=== PATIENT | male | born 1950 | race Caucasian/White ===

== ENCOUNTER 2019-03-21 05:10 | Inpatient (IN) | payer MEDICARE ==
[~2019-03-21] VITALS: Ht 193 cm; Wt 99.5 kg
[~2019-03-21 05:10] MED LIST: BENA40TA73 PO; CHOL40002 PO; EFF25T PO; FLO0.4C PO; HYDR2TAB28 PO; OMEP-84 PO; OXYM30TA3 PO; TOP100T PO; VIT1TABL66 PO
[2019-03-21] MEDS ORDERED: heparin 25,000 UNIT/250ml bag 250 ML IV SCH (05:58)
[2019-03-21] MEDS ORDERED: heparin 10,000 units/1 ML INJ IV ONE ×3 (06:00→06:05)
[2019-03-21] MEDS ORDERED: ipratropium/albuterol 3ml nebule NEB ONE (06:10)
[2019-03-21 06:20] LABS: BASOPHILS % (AUTO) 0.8 % (0-1); EOSINOPHILS # (AUTO) 0.2 X10'3 (0-0.9); EOSINOPHILS % (AUTO) 3.6 % (0-6); HEMATOCRIT 36.4 % (42.0-52.0); HEMOGLOBIN 12.3 g/dl (14.0-17.9); MEAN CORPUSCULAR HEMOGLOBIN 32.5 PG (27.0-31.0); MEAN CORPUSCULAR HGB CONC 33.9 g/dL (33.0-36.5); MEAN CORPUSCULAR VOLUME 95.8 FL (78-98); MEAN PLATELET VOLUME 9.3 FL (7.4-10.4); MONOCYTES # (AUTO) 0.4 X10'3 (0-0.9); MONOCYTES % (AUTO) 6.3 % (2-12); NEUTROPHILS # (AUTO) 4.1 X10'3 (1.8-7.7); NEUTROPHILS % (AUTO) 71.3 % (42-75); PLATELET COUNT 202 X10'3 (140-440); RED BLOOD COUNT 3.79 X10'6 (4.70-6.10); RED CELL DISTRIBUTION WIDTH 13.6 % (11.5-14.5); WHITE BLOOD COUNT 5.7 X10'3 (4.5-11.0)
[2019-03-21] MEDS ORDERED: CefTRIAXone 2gm/D5W 50ml 50 ML IV ONE (06:20)
[2019-03-21] MEDS ORDERED: azithromycin 250mg tablet PO ONE (06:20)
--- NOTE | 2019-03-21 06:32 | NUR ---
DISCUSS WITH DR ENGLAND REGARDING HEPERIN INFUSION. VERBAL ORDER TO HOLD OFF GIVING UNTIL FURTHER NOTICE.
[2019-03-21 06:40] LABS: ALANINE AMINOTRANSFERASE 28 U/L (12-78); ALBUMIN 3.3 G/DL (3.4-5.0); ALKALINE PHOSPHATASE 107 IU/L (46-116); ANION GAP 11 (8-16); ASPARTATE AMINO TRANSFERASE 16 U/L (10-37); BILIRUBIN,TOTAL 0.4 MG/DL (0.1-1.0); BLOOD UREA NITROGEN 14 MG/DL (7-18); BUN/CREATININE RATIO 15.6 (5.4-32.0); CALCIUM 8.2 MG/DL (8.5-10.1); CHLORIDE 106 MMOL/L (99-107); GLUCOSE 106 MG/DL (70-104); SODIUM 141 MMOL/L (135-145); TOTAL CARBON DIOXIDE 24.5 MMOL/L (24-32); TOTAL PROTEIN 6.7 G/DL (6.4-8.2); eGFR 84 ML/MIN
--- NOTE | 2019-03-21 06:50 | NUR ---
RT IN ROOM FOR BREATHING TREATMENT.
[2019-03-21] MEDS ORDERED: iohexol 350MG/ML 100ml bottle IV ONE (07:01)
--- NOTE | 2019-03-21 07:12 | NUR ---
PT TAKEN TO CT VIA W/C BY TECH. PT'S HAS GONE HOME.
[2019-03-21] MEDS ORDERED: ipratropium/albuterol 3ml nebule NEB PRN (08:45)
[2019-03-21] MEDS ORDERED: potassium Cl 20 mEq SR tablet PO PRN ×2 (08:45)
[2019-03-21] MEDS ORDERED: docusate sod 100mg capsule PO PRN (08:45)
[2019-03-21] MEDS ORDERED: mag hydrox/Alum hydrox/simeth 30ml oral suspension PO PRN (08:45)
[2019-03-21] MEDS ORDERED: magnesium 4gm in 100ml NS 100 ML IV PRN (08:45)
[2019-03-21] MEDS ORDERED: potassium CL 10mEq/100ml bag 100 ML IV PRN ×2 (08:45)
[2019-03-21] MEDS ORDERED: morphine 2 MG/ML inj. syringe IV PRN ×2 (08:45)
[2019-03-21] MEDS ORDERED: magnesium 2GM in 50ml NS 50 ML IV PRN (08:45)
[2019-03-21] MEDS ORDERED: ondansetron/PF 4mg/2ml inj IV PRN (08:45)
[2019-03-21] MEDS ORDERED: VENL-191 PO (08:58)
[2019-03-21] MEDS ORDERED: BENA40TA72 PO (08:58)
[2019-03-21] MEDS ORDERED: AMLO2.5T2 PO (08:58)
[2019-03-21] MEDS ORDERED: PRAM0.258 PO (09:07)
[2019-03-21] MEDS ORDERED: ALFU10TA10 PO (09:07)
[2019-03-21] MEDS ORDERED: VENL75CA55 PO (09:12)
[2019-03-21 10:12] LABS: D-DIMER 0.83 MG/L FEU (0-0.50); PARTIAL THROMBOPLASTIN TIME 27 SECONDS (22-32)
[2019-03-21] MEDS ORDERED: diatr meglu/diatrizoate 30ml oral sol.-(3 dose) bottle PO ONE ×3 (10:45→16:45)
[2019-03-21 12:00] VITALS: BP 125/73
[2019-03-21] MEDS ORDERED: diatr meglu/diatrizoate 30ml oral sol.-(3 dose) bottle PO SCH (12:00)
[2019-03-21] MEDS: acetaminophen 325mg tablet PO PRN (14:36)
[2019-03-21 14:40] VITALS: BP 137/86
[2019-03-21 15:00] VITALS: BP 127/73
[2019-03-21 15:03] VITALS: BP 104/75
[2019-03-21 15:42] LABS: BFSOURCE RIGHT PLEURAL FLD; PLEURAL FLUID PH 7.507 (7.63-7.65)
[2019-03-21 16:08] LABS: GLUCOSE,BODY FLUID 109 MG/DL; LDH,BODY FLUID 68 U/L
[2019-03-21 16:18] LABS: TOTAL PROTEIN,BODY FLUID < 2.0 G/DL
[2019-03-21 18:00] VITALS: BP 124/76
[2019-03-21 18:13] LABS: BF RBC COUNT 2650 /CU MM; BF WBC COUNT 193 /CU MM (0-1000); BFAPPEAR CLOUDY; BFCOLOR AMBER; BFVOLUME 54.5 ML
[2019-03-21 18:18] LABS: LYMPHOCYTES,BODY FLUID 43 %; MONOCYTES,BODY FLUID 47 %; NEUTROPHILS,BODY FLUID 10 %
--- NOTE | 2019-03-21 18:39 | NUR ---
Patient in room U 3015. I have received report from MARY Valdez and had the opportunity to ask questions and assume patient care. Addendum: 03/21/19 at 1839 by Aditi Berry RN Amended: Links added.
[2019-03-21] MEDS ORDERED: pneumococcal 23-VAL P-sac vacc 25 mcg/0.5ml vial IMVAC ONE (20:05)
[2019-03-21 22:00] VITALS: BP 109/65
[2019-03-22 02:00] VITALS: BP 145/75
[2019-03-22] MEDS: acetaminophen 325mg tablet PO PRN ×2 (02:23→16:36)
[2019-03-22 06:00] VITALS: BP 124/83
[2019-03-22 06:05] LABS: ALANINE AMINOTRANSFERASE 28 U/L (12-78); ALBUMIN 3.1 G/DL (3.4-5.0); ALBUMIN/GLOBULIN RATIO 0.9 (1.1-1.5); ALKALINE PHOSPHATASE 105 IU/L (46-116); ANION GAP 10 (8-16); ASPARTATE AMINO TRANSFERASE 18 U/L (10-37); BILIRUBIN,TOTAL 0.4 MG/DL (0.1-1.0); BLOOD UREA NITROGEN 10 MG/DL (7-18); BUN/CREATININE RATIO 10.9 (5.4-32.0); CALCIUM 8.2 MG/DL (8.5-10.1); CHLORIDE 105 MMOL/L (99-107); CHOL/HDL RATIO 3.3 (0.00-4.99); CHOLESTEROL 197 MG/DL (0-200); CREATININE 0.92 MG/DL (0.60-1.10); GLUCOSE 137 MG/DL (70-104); HDL CHOLESTEROL 60 MG/DL (35-60); LDL CHOLESTEROL 127 MG/DL (50-100); MAGNESIUM 1.7 MG/DL (1.5-2.4); POTASSIUM 4.2 MMOL/L (3.5-5.1); SODIUM 139 MMOL/L (135-145); TOTAL CARBON DIOXIDE 23.9 MMOL/L (24-32); TOTAL PROTEIN 6.6 G/DL (6.4-8.2); TRIGLYCERIDES 72 MG/DL (20-135); eGFR 82 ML/MIN
[2019-03-22 06:07] LABS: BASOPHILS % (AUTO) 0.8 % (0-1); EOSINOPHILS # (AUTO) 0.2 X10'3 (0-0.9); EOSINOPHILS % (AUTO) 3.5 % (0-6); HEMATOCRIT 35.6 % (42.0-52.0); HEMOGLOBIN 12.1 g/dl (14.0-17.9); LYMPHOCYTES # (AUTO) 0.9 X10'3 (1.1-4.8); LYMPHOCYTES % (AUTO) 15.4 % (21-51); MEAN CORPUSCULAR HEMOGLOBIN 32.7 PG (27.0-31.0); MEAN CORPUSCULAR HGB CONC 34.1 g/dL (33.0-36.5); MEAN CORPUSCULAR VOLUME 95.8 FL (78-98); MEAN PLATELET VOLUME 9.4 FL (7.4-10.4); MONOCYTES # (AUTO) 0.4 X10'3 (0-0.9); MONOCYTES % (AUTO) 6.2 % (2-12); NEUTROPHILS # (AUTO) 4.3 X10'3 (1.8-7.7); NEUTROPHILS % (AUTO) 74.1 % (42-75); PLATELET COUNT 190 X10'3 (140-440); RED BLOOD COUNT 3.71 X10'6 (4.70-6.10); RED CELL DISTRIBUTION WIDTH 13.7 % (11.5-14.5); WHITE BLOOD COUNT 5.8 X10'3 (4.5-11.0)
--- NOTE | 2019-03-22 06:23 | NUR ---
Problems reprioritized. Patient report given, questions answered & plan of care reviewed with MARY MANZANARES. Addendum: 03/22/19 at 0623 by Aditi Berry RN Amended: Links added.
[2019-03-22] MEDS: enoxaparin 40mg/0.4ml syringe SQ SCH (08:16)
[2019-03-22] MEDS: K and/or MAG REPLACEMENT MC SCH (08:40)
[2019-03-22] MEDS ORDERED: pramipexole 0.25mg tablet PO PRN (09:20)
[2019-03-22] MEDS: spironolactone 25 MG tablet PO SCH (09:55)
[2019-03-22] MEDS: venlafaxine XR 75mg capsule (Q24H) PO SCH (09:55)
[2019-03-22 11:00] VITALS: BP 127/83
[2019-03-22] MEDS ORDERED: furosemide 20 MG/2 ML vial IV ONE (13:05)
[2019-03-22 15:00] VITALS: BP 122/78
[2019-03-22 18:00] VITALS: BP 145/72
--- NOTE | 2019-03-22 18:17 | NUR ---
Patient in room PCU 3015. I have received report from José Miguel EHRNANDEZ and had the opportunity to ask questions and assume patient care.
[2019-03-22] MEDS ORDERED: carVEDilol 3.125mg tablet PO SCH (20:00)
[2019-03-22] MEDS: lisinopril 20mg tablet PO SCH (20:51)
[2019-03-22] MEDS: carVEDilol 3.125mg tablet PO SCH (20:52)
[2019-03-22 22:00] VITALS: BP 144/88
[2019-03-23 02:00] VITALS: BP 104/75
[2019-03-23] MEDS ORDERED: cyclobenzaprine 10mg tablet PO ONE (03:15)
[2019-03-23 04:47] LABS: BASOPHILS % (AUTO) 0.6 % (0-1); EOSINOPHILS # (AUTO) 0.2 X10'3 (0-0.9); EOSINOPHILS % (AUTO) 3.8 % (0-6); HEMATOCRIT 36.5 % (42.0-52.0); HEMOGLOBIN 12.4 g/dl (14.0-17.9); LYMPHOCYTES # (AUTO) 1.1 X10'3 (1.1-4.8); LYMPHOCYTES % (AUTO) 18.2 % (21-51); MEAN CORPUSCULAR HEMOGLOBIN 32.5 PG (27.0-31.0); MEAN CORPUSCULAR VOLUME 95.6 FL (78-98); MEAN PLATELET VOLUME 9.5 FL (7.4-10.4); MONOCYTES # (AUTO) 0.4 X10'3 (0-0.9); MONOCYTES % (AUTO) 7.4 % (2-12); NEUTROPHILS # (AUTO) 4.1 X10'3 (1.8-7.7); PLATELET COUNT 208 X10'3 (140-440); RED BLOOD COUNT 3.82 X10'6 (4.70-6.10); RED CELL DISTRIBUTION WIDTH 13.7 % (11.5-14.5); WHITE BLOOD COUNT 5.8 X10'3 (4.5-11.0)
[2019-03-23 04:58] LABS: ALANINE AMINOTRANSFERASE 33 U/L (12-78); ALBUMIN 3.1 G/DL (3.4-5.0); ALBUMIN/GLOBULIN RATIO 0.9 (1.1-1.5); ALKALINE PHOSPHATASE 102 IU/L (46-116); ANION GAP 8 (8-16); ASPARTATE AMINO TRANSFERASE 18 U/L (10-37); BILIRUBIN,TOTAL 0.5 MG/DL (0.1-1.0); BLOOD UREA NITROGEN 11 MG/DL (7-18); BUN/CREATININE RATIO 12.2 (5.4-32.0); CALCIUM 8.5 MG/DL (8.5-10.1); CHLORIDE 105 MMOL/L (99-107); GLUCOSE 112 MG/DL (70-104); MAGNESIUM 1.7 MG/DL (1.5-2.4); POTASSIUM 4.2 MMOL/L (3.5-5.1); SODIUM 140 MMOL/L (135-145); TOTAL CARBON DIOXIDE 27.5 MMOL/L (24-32); TOTAL PROTEIN 6.7 G/DL (6.4-8.2); eGFR 84 ML/MIN
[2019-03-23 06:00] VITALS: BP 124/57
--- NOTE | 2019-03-23 06:16 | NUR ---
Problems reprioritized. Patient report given, questions answered & plan of care reviewed with José Miguel HERNANDEZ.
[2019-03-23] MEDS: spironolactone 25 MG tablet PO SCH (07:54)
[2019-03-23] MEDS: venlafaxine XR 75mg capsule (Q24H) PO SCH (07:54)
[2019-03-23] MEDS: tamsulosin 0.4mg capsule PO SCH (07:54)
[2019-03-23] MEDS: carVEDilol 3.125mg tablet PO SCH ×2 (07:54→20:06)
[2019-03-23] MEDS: enoxaparin 40mg/0.4ml syringe SQ SCH (07:58)
[2019-03-23] MEDS ORDERED: lisinopril 20mg tablet PO SCH (08:00)
[2019-03-23] MEDS: K and/or MAG REPLACEMENT MC SCH (08:09)
[2019-03-23 11:00] VITALS: BP 113/62
[2019-03-23 15:00] VITALS: BP 116/72
--- NOTE | 2019-03-23 18:00 | NUR ---
Patient in room PCU 3015. I have received report from José Miguel HERNANDEZ and had the opportunity to ask questions and assume patient care.
[2019-03-23 19:00] VITALS: BP 102/66
[2019-03-23] MEDS: lisinopril 20mg tablet PO SCH (20:06)
[2019-03-23 23:00] VITALS: BP 128/50
[2019-03-24 03:00] VITALS: BP 90/52
[2019-03-24] MEDS: acetaminophen 325mg tablet PO PRN (03:10)
[2019-03-24 04:54] LABS: BASOPHILS % (AUTO) 0.6 % (0-1); EOSINOPHILS # (AUTO) 0.2 X10'3 (0-0.9); EOSINOPHILS % (AUTO) 4.2 % (0-6); HEMATOCRIT 36.9 % (42.0-52.0); HEMOGLOBIN 12.4 g/dl (14.0-17.9); LYMPHOCYTES # (AUTO) 1.2 X10'3 (1.1-4.8); MEAN CORPUSCULAR HEMOGLOBIN 32.5 PG (27.0-31.0); MEAN CORPUSCULAR HGB CONC 33.5 g/dL (33.0-36.5); MEAN CORPUSCULAR VOLUME 97.1 FL (78-98); MEAN PLATELET VOLUME 9.5 FL (7.4-10.4); MONOCYTES # (AUTO) 0.5 X10'3 (0-0.9); MONOCYTES % (AUTO) 8.5 % (2-12); NEUTROPHILS # (AUTO) 3.6 X10'3 (1.8-7.7); NEUTROPHILS % (AUTO) 64.7 % (42-75); PLATELET COUNT 204 X10'3 (140-440); RED BLOOD COUNT 3.81 X10'6 (4.70-6.10); RED CELL DISTRIBUTION WIDTH 13.7 % (11.5-14.5); WHITE BLOOD COUNT 5.5 X10'3 (4.5-11.0)
[2019-03-24 05:23] LABS: ALANINE AMINOTRANSFERASE 33 U/L (12-78); ALBUMIN 3.2 G/DL (3.4-5.0); ALBUMIN/GLOBULIN RATIO 0.9 (1.1-1.5); ALKALINE PHOSPHATASE 103 IU/L (46-116); ANION GAP 8 (8-16); ASPARTATE AMINO TRANSFERASE 23 U/L (10-37); BILIRUBIN,TOTAL 0.3 MG/DL (0.1-1.0); BLOOD UREA NITROGEN 16 MG/DL (7-18); BUN/CREATININE RATIO 17.2 (5.4-32.0); CALCIUM 8.3 MG/DL (8.5-10.1); CHLORIDE 105 MMOL/L (99-107); CREATININE 0.93 MG/DL (0.60-1.10); GLUCOSE 115 MG/DL (70-104); MAGNESIUM 1.9 MG/DL (1.5-2.4); POTASSIUM 4.1 MMOL/L (3.5-5.1); SODIUM 139 MMOL/L (135-145); TOTAL CARBON DIOXIDE 25.7 MMOL/L (24-32); TOTAL PROTEIN 6.7 G/DL (6.4-8.2); eGFR 81 ML/MIN
[2019-03-24 06:00] VITALS: BP 112/71
--- NOTE | 2019-03-24 06:00 | NUR ---
Patient in room PCU 3015. I have received report from Kandi HERNANDEZ and had the opportunity to ask questions and assume patient care.
--- NOTE | 2019-03-24 06:10 | NUR ---
Problems reprioritized. Patient report given, questions answered & plan of care reviewed with Jalyn HERNANDEZ.
[2019-03-24] MEDS: K and/or MAG REPLACEMENT MC SCH (08:00)
--- NOTE | 2019-03-24 08:28 | NUR ---
page to Dr Delgado re: Room 6702Y [place] PRATT pt just had 8 beat run of idioventricular tachycardia, please advise Jalyn [phone]
[2019-03-24] MEDS: tamsulosin 0.4mg capsule PO SCH (09:27)
[2019-03-24] MEDS: venlafaxine XR 75mg capsule (Q24H) PO SCH (09:27)
[2019-03-24] MEDS: carVEDilol 3.125mg tablet PO SCH (09:27)
[2019-03-24] MEDS: spironolactone 25 MG tablet PO SCH (09:27)
[2019-03-24] MEDS: enoxaparin 40mg/0.4ml syringe SQ SCH (09:28)
[2019-03-24] MEDS ORDERED: ASPI-611 PO (10:29)
[2019-03-24] MEDS ORDERED: COR3.125T PO (10:29)
[2019-03-24] MEDS ORDERED: SPIR25TA PO (10:29)
[2019-03-24] MEDS ORDERED: ATOR40TA PO (10:29)
[2019-03-24] MEDS ORDERED: NITR0.4T51 SL (10:30)
[2019-03-24 11:00] VITALS: BP 113/72
--- NOTE | 2019-03-24 11:50 | NUR ---
Patient discharged stable to home. Discharge instructions given verbally and written to patient and spouse, both verbalized understanding. All personal belongings including life vest returned to patient. Peripheral IV to right antecubital removed, cannula intact. Tele box removed and returned to manager telemetry room. Patient wheeled out via wheelchair by staff to personal vehicle.
== END 2019-03-24 11:50 | disposition home or self-care (01) | DRG 291 ==
LOC: ER 05:11 → PCU 3S 10:20 → CMPBEDREQ 19:45
PROVIDERS: ADMIT Family Medicine; ATTEND Family Medicine
PROC: 0W993ZZ Drainage of Right Pleural Cavity, Percutaneous Approach (ICD-10-PCS; principal; 2019-03-21)
PROC: 3E0234Z Introduction of Serum, Toxoid and Vaccine into Muscle, Percutaneous Approach (ICD-10-PCS; 2019-03-21)
PROC: B32T1ZZ Computerized Tomography (CT Scan) of Left Pulmonary Artery using Low Osmolar Contrast (ICD-10-PCS; 2019-03-21)
PROC: B3201ZZ Computerized Tomography (CT Scan) of Thoracic Aorta using Low Osmolar Contrast (ICD-10-PCS; 2019-03-21)
PROC: B32S1ZZ Computerized Tomography (CT Scan) of Right Pulmonary Artery using Low Osmolar Contrast (ICD-10-PCS; 2019-03-21)
DX: I11.0 Hypertensive heart disease with heart failure (principal); I50.21 Acute systolic (congestive) heart failure; J91.8 Pleural effusion in other conditions classified elsewhere; I42.9 Cardiomyopathy, unspecified; R06.03 Acute respiratory distress; D64.9 Anemia, unspecified; E66.9 Obesity, unspecified; R09.02 Hypoxemia; E78.5 Hyperlipidemia, unspecified; F12.90 Cannabis use, unspecified, uncomplicated; R14.0 Abdominal distension (gaseous); F32.9 Major depressive disorder, single episode, unspecified; M54.2 Cervicalgia; G47.30 Sleep apnea, unspecified; R00.0 Tachycardia, unspecified; G89.29 Other chronic pain; I48.0 Paroxysmal atrial fibrillation; Z87.891 Personal history of nicotine dependence; Z23 Encounter for immunization; Z68.26 Body mass index [BMI] 26.0-26.9, adult; Z88.8 Allergy status to other drugs, medicaments and biological substances; Z79.899 Other long term (current) drug therapy
CPT/HCPCS: 32555; 36415; 71045; 71275; 74176; 80053; 80061; 82945; 83605; 83615; 83735; 83880; 83986; 84145; 84157; 84439; 84443; 84484; 85025; 85379; 85610; 85730; 87040; 87070; 87075; 87081; 87102; 89051; 90732; 93005; 93306; 94640; 94760; 96365; 99291; G0378; J0696; J1650; J1940; Q9963; Q9967

== ENCOUNTER 2023-01-17 10:31 | Emergency (ER) | payer MEDICARE ==
[~2023-01-17] VITALS: Ht 195.6 cm; Wt 123.0 kg
[~2023-01-17 10:31] MED LIST changes: +ALFU10TA10 PO; +BENA40TA72 PO; -BENA40TA73 PO; -CHOL40002 PO; +COR3.125T PO; -EFF25T PO; -FLO0.4C PO; -HYDR2TAB28 PO; -OMEP-84 PO; -OXYM30TA3 PO; +PRAM0.258 PO; +SPIR25TA PO; -TOP100T PO; +VENL75CA55 PO; -VIT1TABL66 PO
[2023-01-17] MEDS ORDERED: proCHLORperazine 10 MG/2 ml inj IV ONE (10:35)
[2023-01-17] MEDS ORDERED: morphine 4 MG/ML inj SYRINge IV PRN (11:30)
[2023-01-17] MEDS ORDERED: niCARdipine I.V. 50 MG in normal saline 250ml IV soln 230 ML IV SCH (11:30)
[2023-01-17] MEDS ORDERED: niCARDipine-NS 40mg/200ml IVPB 250 ML IV SCH (11:53)
[2023-01-17 12:03] LABS: BASOPHILS % (AUTO) 0.3 % (0-1); EOSINOPHILS % (AUTO) 0.6 % (0-6); HEMATOCRIT 34.3 % (42.0-52.0); HEMOGLOBIN 11.6 g/dl (14.0-17.9); LYMPHOCYTES # (AUTO) 0.3 X10'3 (1.1-4.8); LYMPHOCYTES % (AUTO) 3.9 % (21-51); MEAN CORPUSCULAR HEMOGLOBIN 32.5 PG (27.0-31.0); MEAN CORPUSCULAR HGB CONC 33.7 g/dL (33.0-36.5); MEAN CORPUSCULAR VOLUME 96.4 FL (78-98); MEAN PLATELET VOLUME 8.5 FL (7.4-10.4); MONOCYTES # (AUTO) 0.3 X10'3 (0-0.9); MONOCYTES % (AUTO) 3.5 % (2-12); NEUTROPHILS # (AUTO) 6.6 X10'3 (1.8-7.7); NEUTROPHILS % (AUTO) 91.7 % (42-75); PLATELET COUNT 229 X10'3 (140-440); RED BLOOD COUNT 3.55 X10'6 (4.70-6.10); RED CELL DISTRIBUTION WIDTH 12.4 % (11.5-14.5); WHITE BLOOD COUNT 7.2 X10'3 (4.5-11.0)
[2023-01-17 12:17] LABS: ALANINE AMINOTRANSFERASE 28 U/L (12-78); ALBUMIN 3.8 G/DL (3.4-5.0); ALBUMIN/GLOBULIN RATIO 1.1 (1.1-1.5); ALKALINE PHOSPHATASE 95 IU/L (46-116); ANION GAP 9 (8-16); ASPARTATE AMINO TRANSFERASE 19 U/L (10-37); BILIRUBIN,TOTAL 0.3 MG/DL (0.1-1.0); BLOOD UREA NITROGEN 23 MG/DL (7-18); CALCIUM 9.3 MG/DL (8.5-10.1); CHLORIDE 103 MMOL/L (99-107); CREATININE 1.21 MG/DL (0.60-1.10); GLUCOSE 156 MG/DL (70-104); POTASSIUM 5.1 MMOL/L (3.5-5.1); SODIUM 135 MMOL/L (135-145); TOTAL CARBON DIOXIDE 22.6 MMOL/L (24-32); TOTAL PROTEIN 7.3 G/DL (6.4-8.2); eGFR 59 ML/MIN
[2023-01-17 12:20] LABS: LIPASE 239 U/L (73-393)
[2023-01-17] MEDS ORDERED: iohexol 300mg/ml 100ml inj. ONE (12:22)
[2023-01-17] MEDS ORDERED: morphine 4 MG/ML inj SYRINge IV ONE (12:25)
--- NOTE | 2023-01-17 13:34 | NUR ---
pt requesting pain meds and nausea medication, will make provider aware
[2023-01-17 13:44] VITALS: BP 163/84
[2023-01-17] MEDS ORDERED: fentaNYL/PF 50MCG/1 ML 2ML syringe IV ONE (13:55)
[2023-01-17 14:00] LABS: CLARITY,URINE CLEAR (Clear); COLOR,URINE YELLOW (Yellow); GLUCOSE, URINE NEGATIVE (Neg); KETONES,URINE 15 mg/dl (Neg); LEUKOCYTE ESTERASE ,URINE NEGATIVE (Neg); NITRITES, URINE NEGATIVE (Neg); OCCULT BLOOD,URINE TRACE-INTACT (Neg); PH,URINE 6.5 (4.8-8.0); PROTEIN,URINE TRACE mg/dl (Neg); UROBILINOGEN,URINE 0.2 E.U/dL (0.2-1.0)
--- NOTE | 2023-01-17 14:03 | NUR ---
titrated the nicardipene drip from 5mg to 7.5 mg per protocol.
[2023-01-17 14:04] LABS: UA COLLECTION TYPE CLN CATCH MIDSTREAM
[2023-01-17 14:05] LABS: BACTERIA,URINE NONE SEEN /HPF (Neg); MUCUS STRANDS NONE SEEN /LPF (Neg); RBC,URINE 0-2 /HPF (0-2); SQUAMOUS EPITHELIAL CELL,UR NONE SEEN /LPF (FEW); WBC,URINE 0-4 /HPF (0-4)
== END 2023-01-17 15:36 | disposition home or self-care (01) ==
LOC: ER 10:31
DX: R06.4 Hyperventilation (principal); R11.2 Nausea with vomiting, unspecified; I10 Essential (primary) hypertension; Z88.8 Allergy status to other drugs, medicaments and biological substances
CPT/HCPCS: 36415; 71260; 74177; 80053; 81001; 83690; 84484; 85025; 96365; 96366; 96375; 99285; J0780; J3010; J3490; Q9967

== ENCOUNTER 2025-04-26 06:38 | Inpatient (IN) | payer MEDICARE ==
[~2025-04-26] VITALS: Ht 190.5 cm; Wt 130.0 kg
[2025-04-26] VITALS (14 sets, daily range): BP systolic 118–141; BP diastolic 71–89; PULSE 78–174; RESP 16–25; TEMP 97.1–97.8; O2SAT 95–100
[~2025-04-26 06:38] MED LIST changes: -ALFU10TA10 PO; +ALFU10TA47 PO
--- NOTE | 2025-04-26 06:48 | Physician Documentation ---
History of Present Illness General Chief Complaint: Respiratory Distress Stated Complaint: SOB M ALS Time Seen by MD: 06:45 History of Present Illness Initial Comments The patient is a 75-year-old male with a history of pancreatic cancer and CHF who is currently taking no medications. He stopped taking them when his in May of last year. He has been getting progressively short of breath over the past week and this worsened precipitously last night. He is describing some chest heaviness, as well. He has had no fever or cough. He has made it clear that his code status is DNR and [id number]. Medication Reconciliation Allergies: Coded Allergies: prednisone (Verified Allergy, Unknown, 01/17/23) Scheduled Alfuzosin Hcl* (Uroxatral*), 1 TAB PO DAILY, (Reported) Benazepril HCl (Benazepril HCl), 2 TABLET PO DAILY, (Reported) Carvedilol (Carvedilol), 6.25 MG PO BID Spironolactone (Aldactone), 25 MG PO DAILY@0830 Venlafaxine Hcl (Effexor Xr), 3 CAP PO DAILY, (Reported) Scheduled PRN Pramipexole Di-Hcl (Pramipexole Dihydrochloride), 1 TAB PO DAILY PRN for pain, (Reported) Past Medical History Past Medical History: Hypertension, Pulmonary Embolism, *MUSCULOSKELETAL*, *CANCER*, Depression Past Surgical History: noncontributory, other Smoking: Non-Smoker Alcohol Use: None Drug Use: none Lives with: Spouse Lives In: Home Review of Systems ROS Constitutional: Denies chills, fatigue, fever, weight gain or weight loss. HEENT: Denies hearing loss, sinus pressure or visual changes. Respiratory: Short of breath Cardiovascular: Chest heaviness Gastrointestinal: Denies abdominal pain, blood in stool, constipation, diarrhea, heartburn, loss of appetite, nausea or vomiting. Genitourinary: Denies painful urination (dysuria), excessive amount of urine (polyuria) or urinary frequency. Metabolic/Endocrine: Denies cold intolerance, heat intolerance, excessive thirst (polydipsia) or excessive hunger (polyphagia). Neurological: Denies dizziness, extremity numbness, extremity weakness, headaches, seizures or tremors. Psychiatric: Denies anxiety or depression. Integumentary: Denies breast discharge, breast lump, hives, mole change(s), rash or skin lesion. Musculoskeletal: Denies back pain, joint pain, joint swelling or neck pain. Hematologic: Denies easily bleeding, easily bruises, lymphedema or issues with blood clots. Immunologic: Denies food allergies or seasonal allergies. Physical Exam Physical Exam Vital Signs: Heart Rate: 174, Respiratory Rate: 22, Pulse Oximetry: 100, Weight: 130.000 Oxygen Flow Rate: 0 Physical Exam Physical Exam Vitals and nursing note reviewed. Constitutional: General: Patient is awake, alert, oriented x 4 in no acute distress and well appearing. Speech is clear and lucid. Appearance: Obese. Pale, tachypneic and short of breath. HENT: Head: Normocephalic and atraumatic. Mouth/Throat: Mouth: Mucous membranes are moist. Pharynx: Oropharynx is clear. Eyes: General: No scleral icterus. Extraocular Movements: Extraocular movements intact. Pupils: Pupils are equal, round, and reactive to light. Neck: Supple, no Kernig or Brudzinski sign. Cardiovascular: Rate and Rhythm: Tachycardic Heart sounds: No murmur heard. Pulmonary: Effort: Tachypneic and short of breath, on BiPAP Breath sounds: No wheezing, rhonchi or rales. Abdominal: General: There is no distension. Palpations: There is no fluid wave, hepatomegaly or mass. Tenderness: There is no abdominal tenderness. There is no guarding. Musculoskeletal: General: No swelling or deformity. Skin: Coloration: Skin is not jaundiced. Findings: No erythema or rash. Neurological: Mental Status: Patient is alert. Progress Results/Orders Results/Orders Orders - ADDY SANFORD MD Chest,Single View (04/26/25 06:39) Monitor (04/26/25 06:39) Saline Lock (04/26/25 06:39) Oxygen (04/26/25 06:39) Hs Troponin I W Calculations (04/26/25 08:39) Hs Troponin I W Calculations (04/26/25 09:39) Straight Cath For Urine Sample (04/26/25 06:39) Covid19 Binax Poc Result Entry (04/26/25 06:45) Nitroglycerin Sublingual Tab (Nitrostat (04/26/25 06:50) Page Hospitalist (04/26/25 08:40) Completed Orders - ADDY SANFORD MD Chest,Single View (04/26/25 06:39) Cbc/Diff (04/26/25 06:39) BMP (04/26/25 06:39) PBNP (04/26/25 06:39) Electrocardiogram (04/26/25 06:39) Hs Troponin I W Calculations (04/26/25 06:39) Urinalysis, Cult If Indicated (04/26/25 06:39) Lipase (04/26/25 06:39) CMP (04/26/25 06:39) MG (04/26/25 06:45) Furosemide Inj (Lasix Inj) (04/26/25 06:50) Nitroglycerin Top Ointment (Nitro-Bid Ud (04/26/25 06:50) Diltiazem Iv (Cardizem Iv 5mg/Ml Inj.) (04/26/25 07:00) Acetaminophen 325mg Tablet (Tylenol Tabl (04/26/25 07:50) Medications Received in ER Medications (Trade) Dose Ordered Sig/Tresa Route PRN Reason Start Time Stop Time Status Last Admin Dose Admin (Lasix inj) 80 mg ONCE ONCE IV 04/26/25 06:50 04/26/25 06:51 DC 04/26/25 06:57 80 MG (Nitrostat SL tablet) 0.4 mg Q5MIN PRN SL chest pain 04/26/25 06:50 04/26/25 06:56 0.4 MG (Nitro-BID UD ointment) 1 inch ONCE ONCE TP 04/26/25 06:50 04/26/25 06:52 DC 04/26/25 07:01 1 INCH (Cardizem IV 5mg/ ml inj.) 10 mg ONCE ONCE IV 04/26/25 07:00 04/26/25 07:01 DC 04/26/25 07:04 10 MG (Tylenol tablet) 650 mg ONCE ONCE PO 04/26/25 07:50 04/26/25 07:51 DC 04/26/25 08:35 650 MG Vital Signs 04/26/25 04/26/25 04/26/25 04/26/25 06:40 06:43 07:04 07:12 Temp 97.7 97.7 Pulse 175 174 142 128 Resp 25 22 14 B/P (MAP) 203/125 149/99 134/95 (108) Pulse Ox 100 100 98 O2 Delivery Room Air* O2 Flow Rate 0 0 0 FiO2 21 04/26/25 04/26/25 04/26/25 07:30 07:48 08:35 Pulse 129 128 Resp 18 14 B/P (MAP) 143/102 (116) 138/87 (104) Pulse Ox 99 99 O2 Flow Rate 0 0 Laboratory Tests Test 04/26/25 06:45 04/26/25 07:06 04/26/25 07:30 04/26/25 07:36 White Blood Count 6.6 Red Blood Count 3.64 L Hemoglobin 11.7 L Hematocrit 35.0 L Mean Corpuscular Volume 96.0 Mean Corpuscular Hemoglobin 32.1 H Mean Corpuscular Hemoglobin Concent 33.5 Red Cell Distribution Width 14.5 Platelet Count 278 Mean Platelet Volume 9.6 Neutrophils (%) (Auto) 77.5 H Lymphocytes (%) (Auto) 13.2 L Monocytes (%) (Auto) 5.7 Eosinophils (%) (Auto) 2.6 Basophils (%) (Auto) 1.0 Neutrophils # (Auto) 5.1 Lymphocytes # (Auto) 0.9 L Monocytes # (Auto) 0.4 Eosinophils # (Auto) 0.2 Basophils # (Auto) 0.1 CBC Comment Sodium Level 141 Potassium Level 4.4 Chloride Level 109 H Carbon Dioxide Level 18.8 L Anion Gap 13 Blood Urea Nitrogen 18 Creatinine 1.38 H Estimated GFR/1.73 m2 51 BUN/Creatinine Ratio 13.0 Glucose Level 141 H Calcium Level 8.4 L Magnesium Level 1.8 Total Bilirubin 0.5 Aspartate Amino Transf (AST/SGOT) 24 Alanine Aminotransferase (ALT/SGPT) 36 Alkaline Phosphatase 94 Troponin I High Sensitivity 99 *H Pro-B-Type Natriuretic Peptide 2624 H Total Protein 7.3 Albumin 3.5 Globulin 3.8 Albumin/Globulin Ratio 0.9 L Lipase 125 H Chemistry Comments SARS-CoV-2 Antigen (Rapid) Invalid Negative Urine Specimen Description Urinal Urine Color Yellow Urine Clarity Clear Urine pH 6.0 Urine Specific Fletcher 1.015 Urine Protein Negative Urine Glucose (UA) Negative Urine Ketones Negative Urine Occult Blood Negative Urine Nitrite Negative Urine Bilirubin Negative Urine Urobilinogen 0.2 Urine Leukocyte Esterase Negative Urine Culture Indicated Not ind Volume Urine Centrifuged 10 ml Urine Comment Test 04/26/25 08:31 Medical Decision Making Findings This 75-year-old man with a history of CHF and pancreatic cancer, code status DNR and do not intubate, has been becoming progressively short of breath over the past week but was quite dyspneic last night. He presented in moderate to severe shortness of breath and hypertensive on BiPAP. He has responded to Lasix and nitroglycerin. He is still dyspneic though markedly improved from when he arrived. His initial troponin is somewhat elevated. I am going to get him admitted for further treatment of his CHF. CHEST X-RAY FINDINGS: X-rays were interpreted by me. The lungs show signs of pulmonary vascular congestion. The cardiac and mediastinal contours are within normal limits. IMPRESSION: CHF EKG medically necessary in the evaluation of shortness of breath and interpreted by me at the time of patient evaluation. Rhythm is atrial fibrillation with a rate of 162. Impression: Abnormal EKG. Departure Disposition: ADMITTED INPATIENT Admitted to Inpatient Unit: to hospitalist Admission Level of Care: Ortho with Tele Impression: Primary Impression: CHF exacerbation Additional Impressions: Elevated troponin Atrial fibrillation with rapid ventricular response Condition: Fair Referrals: NO PRIMARY CARE PROVIDER (PCP) Signature Scribe Signature: . Attestation: . ADDY SANFORD MD Apr 26, 2025 06:48
[2025-04-26] MEDS: furosemide 10 MG/1 ML 10ml inj IV ONE (06:57)
[2025-04-26] MEDS: nitroGLYCERIN 1gm ointment UD TP ONE (07:01)
[2025-04-26] MEDS: diltiazem 5mg/ml 5ml inj. IV ONE ×2 (07:04→09:13)
--- NOTE | 2025-04-26 07:09 | RADIOLOGY REPORT ---
EXAM: DI CHEST,SINGLE VIEW HISTORY: CP COMPARISON: CT scan of the chest dated 01/17/2023. TECHNIQUE: Portable upright AP view of the chest was performed. FINDINGS: There is diffuse interstitial prominence, greater centrally. The there is mild scarring or atelectasis in the right lung base. No pneumothorax or consolidative infiltrates. The heart is not enlarged. The aortic arch is calcific. IMPRESSION: 1. Interstitial prominence may be due to reactive airways disease and/or CHF. 2. Atherosclerotic vascular disease.
[2025-04-26 07:12] LABS: MEAN PLATELET VOLUME 9.6 FL (7.4-10.4); RED CELL DISTRIBUTION WIDTH 14.5 % (11.5-14.5)
--- NOTE | 2025-04-26 07:12 | ELECTROCARDIOGRAPH REPORT ---
[facility] Test Date: 2025-04-26 Test Time: 06:40:36 Pat Name: PRADEEP ADAMS Department: EMERGENCY ROOM Room: [place] [address] Gender: M Prefabricated Houses Trimmer: JEY : [id number] Requested By: ADDY SANFORD Order Number: [id number] Reading MD: Dr. Marko Rangel Measurements Intervals [place] Rate: 162 P: 0 [place]: 0 QRS: 100 QRSD: 94 T: 29 QT: 307 QTc: 505 Interpretive Statements Atrial fibrillation with rapid V-rate Ventricular premature complex Low voltage, extremity leads Consider anterior infarct Electronically Signed On 04-26-2025 19:18:[address] Marko Rangel Please click the below link to view image of tracing.
[2025-04-26 07:13] LABS: CREATININE 1.38 MG/DL (0.60-1.10); TOTAL CARBON DIOXIDE 18.8 MMOL/L (24-32); eCRCL 57 ML/MIN; eGFR 51 ML/MIN
[2025-04-26 07:20] LABS: PRO BRAIN NATRIURETIC PEPTIDE 2624 PG/ML (0-125)
[2025-04-26 07:52] LABS: LEUKOCYTE ESTERASE ,URINE NEGATIVE (Neg); NITRITES, URINE NEGATIVE (Neg); OCCULT BLOOD,URINE NEGATIVE (Neg)
[2025-04-26 08:25] LABS: UA COLLECTION TYPE URINAL
[2025-04-26] MEDS ORDERED: mag hydrox/Alum hydrox/simeth 30ml oral suspension PO PRN (08:55)
[2025-04-26] MEDS ORDERED: ondansetron 4mg rapidly disintigrating tab PO PRN (08:55)
[2025-04-26] MEDS ORDERED: magnesium hydroxide 30ml (MOM) UD suspension PO PRN (08:55)
[2025-04-26] MEDS ORDERED: potassium Cl 40MEQ/1/2NS 520ml 520 ML IV PRN (08:55)
[2025-04-26] MEDS ORDERED: HYDROcodone/acetaminophen 10/325mg tab PO PRN (08:55)
[2025-04-26] MEDS ORDERED: HYDROcodone/acetaminophen 5mg/325mg tablet PO PRN (08:55)
[2025-04-26] MEDS ORDERED: magnesium sulf-water 2g/50mL 50 ML IV PRN (08:55)
[2025-04-26] MEDS ORDERED: magnesium sulf-water 4G/100mL 100 ML IV PRN (08:55)
[2025-04-26] MEDS ORDERED: potassium Cl 20 mEq SR tablet PO PRN ×2 (08:55)
[2025-04-26] MEDS: diltiazem-NS 100mg/100ml 100 ML IV SCH (09:41)
[2025-04-26] MEDS: PERFLUTREN PROTEIN-A MICROSPHR (Optison) 0.22 MG/ML 3ML VIAL IV ONE (09:48)
[2025-04-26] MEDS ORDERED: carvedilol 6.25mg tablet PO ONE (10:00)
[2025-04-26] MEDS ORDERED: hydrALAZINE 20mg/ml inj. IV PRN (10:00)
--- NOTE | 2025-04-26 10:08 | HISTORY AND PHYSICAL ---
History & Physical Providers to CC ~ History of Present Illness Reason for Admit\Complaint: afib w/ RVR, acute HF, VERITO, metabolic acidosis History of Present Illness Rio Ray is a 75-year-old male with a past medical history of CHF, hypertension, medication noncompliance, prostate cancer s/p radiation who presented to the ED with chief complaint of progressively worsening shortness of breath with associated symptoms of generalized weakness and orthopnea x 1 week. Patient states he has stopped taking prescribed medications after his one year ago. Patient used to follow Dr. Tisha Reagan, which he stopped as well after his . Patient denies prior VT/CAD, CVA, cardiac arrhythmia, DVT/PE, or GIB. Patient denies chest pain, palpitations, abdominal pain, n/v/d, fever, chills, dysuria, cough, recent illness. Initial diagnostic findings were notable for EKG revealing atrial fibrillation at 162bpm, elevated lactic acid, mildly elevated and flat troponin, elevated NT- pBNP. Patient is to be admitted for further workups and treatment. Allergies: Coded Allergies: prednisone (Verified Allergy, Unknown, 01/17/23) Home Medications Home Medications Active Aldactone (Spironolactone) 25 Mg Tablet 25 Mg PO DAILY@0830 Carvedilol 3.125 Mg Tablet 6.25 Mg PO BID Reported Effexor Xr (Venlafaxine Hcl) 75 Mg Cap.sr.24h 3 Cap PO DAILY 30 Days Uroxatral* (Alfuzosin HCl) 10 Mg Tab.sr.24h 1 Tab PO DAILY Pramipexole Dihydrochloride (Pramipexole Di-Hcl) 0.25 Mg Tablet 1 Tab PO DAILY PRN LEG CRAMPS Benazepril HCl 40 Mg Tablet 2 Tablet PO DAILY Past Medical History Past Medical History CHF Prostate cancer s/p radiation in 2019 Hypertension BPH Past Surgical History Surgical History Comment Spine surgery 30 years ago Past Social History Social History Comment Alcohol: Denies Tobacco: Former smoker of 40 pack year history, quit 23 years ago Illicit drug use: Denies Living situation: Lives at home alone ROS ROS Other than positives in HPI, all 14 review of systems are negative Exam Vitals: Vital Signs Date Time Temp Pulse Resp B/P (MAP) Pulse Ox O2 Delivery O2 Flow Rate FiO2 04/26/25 09:59 116 19 143/72 (95) 98 0 04/26/25 07:12 97.7 04/26/25 06:43 Room Air* 21 General: Generalized weakness, A&Ox 3, NAD HEENT: Normocephalic, PERRLA Neck: Supple, trachea midline, no JVD Chest: Clear to auscultation bilaterally Cardiovascular: IRIR Abdomen: Soft and nontender Extremities: Mild edema b/l lower extremities Central Nervous System: CN II-XII intact, no focal deficits Musculoskeletal: No paraspinal muscle tenderness, no muscle spasm Skin: Warm and intact Diagnostic Data Last Recorded Lab Results: 04/26/25 0645 04/26/25 0645 Additional Plan Assessment & Plan Acute decompensated systolic heart failure Atrial fibrillation w/ RVR Hypertensive emergency NSTEMI likely Type II [place] 2/2 above Metabolic acidosis, AGMA Lactic acidosis VERITO vs CKD Medication noncompliance Hypertension BPH Prostate cancer s/p radiation therapy (in 2019) -EKG atrial fibrillation at 162bpm no axis deviation, no T wave inversions in anterior/inferior leads, no S1Q3T3, elevated lactic acid, bicarb 18, mildly elevated and flat troponin series, pBNP 2600, TTE LVEF 30-35%, RVSP 51mgh without significant VHD -Well's score 1.5, VQ low probability PE, TSH/T4 wnl, afebrile, no hypoxia -diltiazem drip started in ED discontinued, optimize GDMT including diuretics as tolerated, bbx, amiodarone, urine lytes DVT/VTE prophylaxis: Eliquis Code Status: DNR/DNI I spent a total of 35 minutes discussing Advanced Care Planning measures with the patient. Advance care planning: Discussed with patient the importance of advance care planning in case of emergent situation. We discussed various resuscitative measures/ ACP with the patient at the time of admission. Patient voiced understanding and patient has decided on a DNR/DNI status. Date of Service: Apr 26, 2025 Billing Provider: MORRO BROOKS Common Visit Codes: 12289-[id number] INP/OBS CARE (HIGH) Secondary Visit Codes: 87326-[id number] CARE PLAN 30 MINUTES MORRO BROOKS Apr 26, 2025 10:08
[2025-04-26] MEDS ORDERED: ipratropium/albuterol 3ml nebule NEB PRN (11:00)
[2025-04-26] MEDS: EMPAGLIFLOZIN 10 MG TABLET PO ONE (11:12)
[2025-04-26] MEDS: metoprolol tartrate 1mg/ml inj IV ONE (11:13)
[2025-04-26] MEDS ORDERED: metoprolol tartrate 1mg/ml inj IV PRN (11:15)
[2025-04-26 11:27] LABS: CHOL/HDL RATIO 5.2 (0.00-4.99); LDL CHOLESTEROL 139 MG/DL (50-100)
--- NOTE | 2025-04-26 14:48 | RADIOLOGY REPORT ---
NUCLEAR MEDICINE VENTILATION/PERFUSION LUNG SCAN. INDICATION: tachycardia, sob TECHNIQUE: Following intravenous demonstration of 6 millicuries of technetium 99m MAA, and inhalation of 40 mCi of Tc 99m DTPA scintigrams were obtained in multiple projections of the lungs. FINDINGS: There is normal uptake of radionuclide on both the ventilation and perfusion portions of the examination. No mismatched perfusion defects are demonstrated. Uptake is normally homogeneous. IMPRESSION: Low probability for PE.
[2025-04-26 14:50] LABS: CREATININE,URINE RANDOM 50.1 MG/DL; GLUCOSE,URINE RANDOM 9.0 MG/DL; TOTAL PROTEIN,URINE RANDOM 19.2 MG/DL; UA UREA RANDOM 218.0 MG/DL
[2025-04-26] MEDS: ondansetron/PF 4mg/2ml inj IV PRN (15:39)
[2025-04-26] MEDS: aspirin 81mg, enteric-coated 1 TAB TABLET.DR PO ONE (17:09)
--- NOTE | 2025-04-26 18:40 | CARDIOLOGY REPORT ---
APPROVED REPORT EXAM: Comprehensive 2D, Doppler, and color-flow Echocardiogram. Patient Location: ER RM 5 Blood Pressure: 151/85 mmHg Heart Rate: 120 - 146 bpm Rhythm: Atrial Fibrillation Indications Congestive Heart Failure Troponin: 99, 94 ProBNP: 2624 HX of Atrial Fibrillation Congestive Heart Failure Hypertension Pulmonary Embolism NO CERAMIC CHEMIST Previous ECHO: 03/21/19, [facility], EF: -25% 2D Dimensions LA Diam 3.7 cm IVSd 1.0 (0.7-1.1cm) LVDd 5.4 cm PWd 1.1 (0.7-1.1cm) IVSs 1.8 (0.8-1.2cm) LVDs 4.4 (2.5-4.0cm) PWs 1.2 (0.8-1.2cm) LVOT Diameter 2.19 (1.8-2.4cm) LVEF(%) 37.1 (>50%) Ao Asc Diam. 3.49 cm IVC 18.88 mm FS (%) 18.0 % SV 49.0 ml CO 6.1 L/min M-Mode Dimensions Left Atrium(MM) 4.81 (2.5-4.0cm) Aortic Root 3.41 (2.2-3.7cm) Aortic Cusp Exc 1.25 (1.5-2.0cm) MV EPSS 1.8 (<0.5cm) Aortic Valve AoV Peak Rigoberto. 176.2 cm/s AoV VTI 29.2 cm AO Peak GR. 12.4 mmHg AO Mean GR. 8 mmHg LVOT VTI 16.28 cm LVOT Peak Rigoberto. 134.1 cm/s MICHELE(VTI)/BSA 2.11 cm2/m2 MICHELE (VTI) 2.11 cm2 AI P 1/2 Time 416 ms Mitral Valve MV E Velocity 131.5 cm/s MV DECEL TIME 108 ms MV A Velocity 39.3 cm/s E/A Ratio 3.3 Tricuspid Valve TR P. Velocity 322 cm/s RAP ESTIMATE 10 mmHg TR Peak Gr. 41 mmHg RVSP 51 mmHg LEFT VENTRICLE Normal LV size and wall thickness. Overall systolic function is severely decreased. LVEF is approximately 30-35%. RIGHT VENTRICLE The right ventricle is normal size with reduced function. Elevated right heart presures with an RVSP of 51 mmHg. ATRIA The left atrium size is normal. Artifact seen in LA posterior to anterior leaflet (image #[id number] ). AORTIC VALVE Trileaflet AV appears mildly sclerotic without stenosis. Mild insufficiency. MITRAL VALVE Mild mitral annular calcification without stenosis. Mild regurgitation. TRICUSPID VALVE The tricuspid valve is normal in structure with mild regurgitation. PULMONIC VALVE Pulmonic valve is not well visualized. GREAT VESSELS The aortic root is normal in size. The IVC is normal in size and collapses >50% with inspiration. PERICARDIUM Normal pericardium. No effusion. Other Information Study Quality: Adequate Conclusion Normal LV size and wall thickness. Overall systolic function is severely decreased. LVEF is approximately 30-35%. The right ventricle is normal size with reduced function. Elevated right heart presures with an RVSP of 51 mmHg. The left atrium size is normal. Trileaflet AV appears mildly sclerotic without stenosis. Mild insufficiency. Mild mitral annular calcification without stenosis. Mild regurgitation. The tricuspid valve is normal in structure with mild regurgitation. Normal pericardium. No effusion.
[2025-04-26] MEDS: K and/or MAG REPLACEMENT MC SCH (19:30)
[2025-04-26] MEDS: docusate sod 100mg capsule PO SCH (20:00)
[2025-04-26] MEDS ORDERED: carvedilol 6.25mg tablet PO SCH (20:00)
[2025-04-26] MEDS ORDERED: heparin, porcine 5000 units/ml vial SQ SCH (20:00)
[2025-04-27 02:00] VITALS: BP 101/62; PULSE 80; RESP 21
[2025-04-27 06:27] LABS: CREATININE 1.27 MG/DL (0.60-1.10); MEAN PLATELET VOLUME 9.9 FL (7.4-10.4); PRO BRAIN NATRIURETIC PEPTIDE 2455 PG/ML (0-125); RED CELL DISTRIBUTION WIDTH 14.4 % (11.5-14.5); TOTAL CARBON DIOXIDE 23.9 MMOL/L (24-32); eCRCL 62 ML/MIN; eGFR 56 ML/MIN
[2025-04-27] MEDS ORDERED: aspirin 81mg, enteric-coated 1 TAB TABLET.DR PO SCH (08:00)
[2025-04-27] MEDS ORDERED: EMPAGLIFLOZIN 10 MG TABLET PO SCH (08:00)
--- NOTE | 2025-04-27 09:53 | DISCHARGE SUMMARY ---
Discharge Summary Providers to CC ~ Discharge Summary Admission Diagnosis: acute CHF, resp failure, afib rvr Hospital Course DATE OF ADMISSION: 04/26/25 DATE OF DISCHARGE: 04/27/25 Discharge Diagnosis\Comment: Acute decompensated systolic heart failure Atrial fibrillation w/ RVR Hypertensive emergency NSTEMI likely Type II [place] 2/2 above Metabolic acidosis, AGMA Lactic acidosis VERITO vs CKD Medication noncompliance Hypertension BPH Prostate cancer s/p radiation therapy (in 2019) Left AMA Operations\Procedures: None Consultants: None Complications: Left AMA Condition on DC: Unstable Discharge Summary: Patient is not medically cleared for discharge. 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 Patient left AMA despite explaining risks associated with leaving AMA. *Problems/Diagnosis: (1) CHF exacerbation Status: Acute (2) Atrial fibrillation with rapid ventricular response Status: Acute Total Time Spent on D/C: Up to 30 Minutes Date of Service: Apr 27, 2025 Billing Provider: MORRO BROOKS Common Visit Codes: NOT BILLABLE MORRO BROOKS Apr 27, 2025 09:53
== END 2025-04-27 07:27 | disposition left against medical advice (07) | DRG 280 ==
LOC: ER 06:38 → ED HOLD 08:58 → PCU 3S 11:40
PROVIDERS: ADMIT Nurse Practitioner Family; ATTEND Nurse Practitioner Family
PROC: CB121ZZ Planar Nuclear Medicine Imaging of Lungs and Bronchi using Technetium 99m (Tc-99m) (ICD-10-PCS; principal; 2025-04-26)
DX: I16.1 Hypertensive emergency (principal); I50.23 Acute on chronic systolic (congestive) heart failure; I21.A1 Myocardial infarction type 2; E87.20 Acidosis, unspecified; N17.9 Acute kidney failure, unspecified; I13.0 Hypertensive heart and chronic kidney disease with heart failure and stage 1 through stage 4 chronic kidney disease, or unspecified chronic kidney disease; Z20.822 Contact with and (suspected) exposure to COVID-19; Z66 Do not resuscitate; F32.A Depression, unspecified; Z53.21 Procedure and treatment not carried out due to patient leaving prior to being seen by health care provider; I48.91 Unspecified atrial fibrillation; Z91.148 Patient's other noncompliance with medication regimen for other reason; N18.9 Chronic kidney disease, unspecified; Z92.3 Personal history of irradiation; Z85.46 Personal history of malignant neoplasm of prostate; Z86.711 Personal history of pulmonary embolism; Z87.891 Personal history of nicotine dependence; Z88.8 Allergy status to other drugs, medicaments and biological substances; Z85.07 Personal history of malignant neoplasm of pancreas
CPT/HCPCS: 36415; 71045; 78452; 80053; 80061; 81003; 82436; 82570; 82945; 83036; 83605; 83690; 83735; 83880; 84133; 84156; 84300; 84439; 84443; 84484; 84540; 85025; 87081; 87811; 93005; 93306; 94760; 96374; 96376; 99281; 99285; A4615; A9500; G0378; J1938; J2405; J3490